=== PATIENT | male | born 1975 | race Two or more races ===

== ENCOUNTER 2020-07-17 04:18 | Inpatient (IN) | payer OTHER ==
[2020-07-13 10:10] VITALS: BMI 31.2
[~2020-07-17 04:18] MED LIST: BUPIVACAINE HCL/PF 0.5% (5 MG/ML) 30 ML VIAL IJ ONE; BUPIVACAINE LIPOSOME/PF (EXPAREL) 266 MG/20 ML VIAL NR ONE
[2020-07-17] MEDS ORDERED: GENTAMICIN SO4 80 MG/2 ML VIAL ONE (11:16)
[2020-07-17] MEDS ORDERED: LIDOCAINE 1%/EPI 1:100000 (50 ML MULTI DOSE VIAL) ONE (11:17)
[2020-07-17] MEDS ORDERED: THROMBIN (BOVINE) 5,000 UNIT VIAL TP ONE ×2 (11:17→13:08)
[2020-07-17] MEDS ORDERED: KETAMINE HCL 200 MG/20 ML VIAL ONE (11:34)
[2020-07-17] MEDS ORDERED: MIDAZOLAM HCL 2 MG/2 ML SINGLE DOSE VIAL ONE (11:34)
[2020-07-17] MEDS ORDERED: fentaNYL CITRATE 250 MCG/5 ML VIAL ONE (11:34)
[2020-07-17] MEDS ORDERED: ePHEDrine SULFATE 50 MG/1 ML AMPULE ONE (11:34)
[2020-07-17] MEDS ORDERED: ROCURONIUM BROMIDE 50 MG/5 ML SYRINGE ONE ×4 (11:35→15:40)
[2020-07-17] MEDS ORDERED: PROPOFOL 20 ML ONE ×5 (11:35)
[2020-07-17] MEDS ORDERED: LIDOCAINE HCL/PF 2% SDV 5ML VIAL ONE (11:36)
[2020-07-17] MEDS ORDERED: EPHEDRINE SULFATE/0.9% NACL/PF 50 MG/10 ML SYRINGE NR ONE (11:40)
[2020-07-17] MEDS ORDERED: VANCOMYCIN 1,000 MG VIAL (RESTRICTED TO ID ONLY) ONE (11:40)
[2020-07-17] MEDS ORDERED: ceFAZolin SODIUM 1 GM VIAL ONE ×2 (11:40→15:33)
[2020-07-17] MEDS ORDERED: VANCOMYCIN 1,000 MG VIAL (RESTRICTED TO ID ONLY) IVPB ONE (12:30)
[2020-07-17] MEDS ORDERED: ceFAZolin 2 GRAM PREMIX BAG IVPB ONE (12:30)
[2020-07-17] MEDS ORDERED: TRANEXAMIC ACID 1000 MG/10 ML VIAL ONE ×2 (12:35→14:07)
[2020-07-17] MEDS ORDERED: ONDANSETRON 4 MG/2 ML VIAL ONE (12:58)
[2020-07-17] MEDS ORDERED: DEXAMETHASONE SOD PHOSPHATE 4 MG/1 ML VIAL ONE (12:58)
[2020-07-17] MEDS ORDERED: HYDROGEN PEROXIDE 473 ML PO ONE (13:06)
[2020-07-17] MEDS ORDERED: BACITRACIN 50,000 UNITS VIAL TP ONE (13:07)
[2020-07-17] MEDS ORDERED: GENTAMICIN SO4 80 MG/2 ML VIAL IVPB ONE (13:07)
[2020-07-17] MEDS ORDERED: BUPIVACAINE LIPOSOME/PF (EXPAREL) 266 MG/20 ML VIAL ONE (13:20)
[2020-07-17] MEDS ORDERED: HYDROmorphone HCl 2 MG/ML VIAL ONE (14:13)
[2020-07-17] MEDS ORDERED: CALCIUM CHLORIDE 1 GM/10 ML *DISP.SYRIN ONE (14:27)
[2020-07-17] MEDS ORDERED: NEOSTIGMINE METHYLSULFATE 0.5 MG/1 ML - 10 ML MDV ONE (14:39)
[2020-07-17] MEDS ORDERED: BUPIVACAINE HCL/PF 0.5% (5 MG/ML) 30 ML VIAL IJ ONE (15:30)
[2020-07-17] MEDS ORDERED: BUPIVACAINE LIPOSOME/PF (EXPAREL) 266 MG/20 ML VIAL NR ONE (15:30)
[2020-07-17] MEDS ORDERED: GLYCOPYRROLATE 0.2 MG/1 ML VIAL ONE (15:45)
[2020-07-17] MEDS ORDERED: BENZOIN/ALOE VERA/STORAX/TOLU 58 ML BOTTLE ONE (16:19)
[2020-07-17] MEDS ORDERED: diazePAM CARPU-JECT 10 MG/2 ML DISP.SYRIN IVPUSH PRN (16:40)
[2020-07-17] MEDS ORDERED: oxyCODONE HCL 5 MG TABLET PO PRN (16:40)
[2020-07-17] MEDS: HYDROmorphone *PCA* 10MG/50ML DISP.SYRIN PCA SCH ×2 (17:30→22:41)
[2020-07-17] MEDS ORDERED: PCA PUMP NR ONE (19:43)
[2020-07-17] MEDS: LACTATED RINGERS SOLUTION 1,000 ML IV SCH (19:52)
[2020-07-17] MEDS: CEFAZOLIN 2 GM/D5W 2 GM/50 ML ML IVPB SCH ×2 (20:00→21:07)
[2020-07-18] MEDS: LACTATED RINGERS SOLUTION 1,000 ML IV SCH ×4 (02:16→21:35)
[2020-07-18] MEDS: CEFAZOLIN 2 GM/D5W 2 GM/50 ML ML IVPB SCH (02:17)
[2020-07-18 08:54] LABS: HEMATOCRIT 30.4 % (35.4-49); HEMOGLOBIN 10.5 GM/dL (11.7-16.9); MCH 30.7 pg (25.7-33.7); MCHC 34.7 g/dl (32.0-35.9); MEAN CELL VOLUME 88.6 fl (80-96); MEAN PLT VOLUME 9.9 fl (7.5-11.1); PLATELET COUNT 157 K/MM3 (134-434); RBC 3.43 M/mm3 (4.00-5.60); RDW 12.8 % (11.9-15.9); WHITE BLOOD COUNT 16.6 K/mm3 (4.0-10.0)
[2020-07-18] MEDS ORDERED: CEFAZOLIN 2 GM/D5W 2 GM/50 ML ML IVPB SCH (09:00)
[2020-07-18 09:14] LABS: BLOOD UREA NITROGEN 12.4 mg/dL (7-18); CALCIUM 8.1 mg/dL (8.5-10.1)
[2020-07-18 09:17] LABS: CREATININE 0.7 mg/dL (0.55-1.3)
[2020-07-18] MEDS: LORATADINE 10 MG TABLET PO SCH (09:22)
[2020-07-18] MEDS: ONDANSETRON 4 MG/2 ML VIAL IVPUSH PRN (09:48)
[2020-07-18] MEDS ORDERED: PCA PUMP NR ONE ×2 (11:42→16:54)
[2020-07-18] MEDS: ACETAMINOPHEN 1000 MG/100 ML VIAL (NON FORMULARY) IVPB PRN ×2 (13:08→21:35)
[2020-07-18] MEDS ORDERED: oxyCODONE HCL 5 MG TABLET PO PRN (16:29)
[2020-07-18] MEDS: oxyCODONE HCL 5 MG TABLET PO PRN ×2 (17:49→21:49)
[2020-07-18] MEDS: CYCLOBENZAPRINE HCL 10 MG TABLET (FP) PO PRN (18:06)
[2020-07-18] MEDS: HYDROmorphone HCl 2 MG/ML VIAL SQ PRN (19:14)
[2020-07-19] MEDS: HYDROmorphone HCl 2 MG/ML VIAL SQ PRN ×3 (01:51→18:55)
[2020-07-19] MEDS: LACTATED RINGERS SOLUTION 1,000 ML IV SCH ×3 (06:04→23:03)
[2020-07-19] MEDS: ACETAMINOPHEN 1000 MG/100 ML VIAL (NON FORMULARY) IVPB PRN (06:05)
[2020-07-19 08:13] LABS: BASO % 0.3 % (0-2.0); EOS % 0.1 % (0-4.5); HEMATOCRIT 28.1 % (35.4-49); HEMOGLOBIN 9.9 GM/dL (11.7-16.9); LYMPH % 19.5 % (8-40); MCH 31.2 pg (25.7-33.7); MCHC 35.3 g/dl (32.0-35.9); MEAN CELL VOLUME 88.4 fl (80-96); MEAN PLT VOLUME 9.8 fl (7.5-11.1); MONO % 12.1 % (3.8-10.2); PLATELET COUNT 142 K/MM3 (134-434); RBC 3.18 M/mm3 (4.00-5.60); RDW 12.6 % (11.9-15.9); WHITE BLOOD COUNT 14.3 K/mm3 (4.0-10.0)
[2020-07-19 08:24] LABS: CALCIUM 8.2 mg/dL (8.5-10.1)
[2020-07-19 08:25] LABS: BLOOD UREA NITROGEN 9.6 mg/dL (7-18)
[2020-07-19 08:28] LABS: CREATININE 0.8 mg/dL (0.55-1.3)
[2020-07-19] MEDS ORDERED: PT OWN MED DRAWER 7, Y5N ONE (09:20)
[2020-07-19] MEDS: LORATADINE 10 MG TABLET PO SCH (09:21)
[2020-07-19] MEDS: oxyCODONE HCL 5 MG TABLET PO PRN ×3 (09:22→21:19)
[2020-07-19] MEDS: CYCLOBENZAPRINE HCL 10 MG TABLET (FP) PO PRN ×2 (13:38→23:26)
[2020-07-19] MEDS ORDERED: ACETAMINOPHEN 1000 MG/100 ML VIAL (NON FORMULARY) IVPB ONE (23:17)
[2020-07-20] MEDS: HYDROmorphone HCl 2 MG/ML VIAL SQ PRN ×3 (03:24→20:02)
[2020-07-20] MEDS: oxyCODONE HCL 5 MG TABLET PO PRN ×2 (05:38→10:31)
[2020-07-20] MEDS: LACTATED RINGERS SOLUTION 1,000 ML IV SCH ×4 (05:41→22:39)
[2020-07-20] MEDS: LORATADINE 10 MG TABLET PO SCH (09:29)
[2020-07-20] MEDS: ONDANSETRON 4 MG/2 ML VIAL IVPUSH PRN (10:37)
[2020-07-20] MEDS: Methylnaltrexone Bromide 12 MG/0.6 ML KIT SQ SCH (14:30)
[2020-07-20] MEDS ORDERED: PCA PUMP NR ONE (18:30)
[2020-07-20] MEDS: CYCLOBENZAPRINE HCL 10 MG TABLET (FP) PO PRN (18:41)
[2020-07-20] MEDS: SENNOSIDES 8.6MG TABLET (FP) PO SCH (21:36)
[2020-07-20] MEDS: POLYETHYLENE GLYCOL 3350 119 GM BTL PO SCH (21:36)
[2020-07-21] MEDS: oxyCODONE HCL 5 MG TABLET PO PRN ×3 (00:01→11:47)
[2020-07-21] MEDS: HYDROmorphone HCl 2 MG/ML VIAL SQ PRN (04:31)
[2020-07-21] MEDS: CYCLOBENZAPRINE HCL 10 MG TABLET (FP) PO PRN (04:33)
[2020-07-21 08:09] LABS: BASO % 0.3 % (0-2.0); EOS % 1.5 % (0-4.5); HEMATOCRIT 28.6 % (35.4-49); HEMOGLOBIN 9.9 GM/dL (11.7-16.9); LYMPH % 25.1 % (8-40); MCH 30.9 pg (25.7-33.7); MCHC 34.6 g/dl (32.0-35.9); MEAN CELL VOLUME 89.2 fl (80-96); MEAN PLT VOLUME 9.9 fl (7.5-11.1); MONO % 10.2 % (3.8-10.2); NEUT % 62.9 % (42.8-82.8); PLATELET COUNT 171 K/MM3 (134-434); RBC 3.21 M/mm3 (4.00-5.60); RDW 12.4 % (11.9-15.9); WHITE BLOOD COUNT 9.9 K/mm3 (4.0-10.0)
[2020-07-21 08:30] LABS: ALBUMIN 2.5 g/dl (3.4-5.0); BLOOD UREA NITROGEN 6.5 mg/dL (7-18); CALCIUM 8.3 mg/dL (8.5-10.1)
[2020-07-21 08:34] LABS: CREATININE 0.5 mg/dL (0.55-1.3)
[2020-07-21 08:35] LABS: BILIRUBIN,TOTAL 0.9 mg/dL (0.2-1); TOT PROT 5.5 g/dl (6.4-8.2)
[2020-07-21] MEDS: POLYETHYLENE GLYCOL 3350 119 GM BTL PO SCH ×2 (09:19→21:10)
[2020-07-21] MEDS: SENNOSIDES 8.6MG TABLET (FP) PO SCH ×2 (09:19→21:12)
[2020-07-21] MEDS: LORATADINE 10 MG TABLET PO SCH (09:19)
[2020-07-21] MEDS ORDERED: ACETAMINOPHEN 1000 MG/100 ML VIAL (NON FORMULARY) IVPB PRN (12:22)
[2020-07-21] MEDS: Methylnaltrexone Bromide 12 MG/0.6 ML KIT SQ SCH (13:30)
[2020-07-21] MEDS: LACTATED RINGERS SOLUTION 1,000 ML IV SCH ×2 (18:57→22:32)
[2020-07-21] MEDS ORDERED: TRIMETHOBENZAMIDE HCL 200MG/2ML INJ IM PRN (19:20)
[2020-07-21] MEDS: ONDANSETRON 4 MG/2 ML VIAL IVPUSH PRN (22:32)
[2020-07-22] MEDS: LACTATED RINGERS SOLUTION 1,000 ML IV SCH (06:34)
[2020-07-22] MEDS ORDERED: PT OWN MED DRAWER 7, Y5N ONE ×2 (09:13→09:15)
[2020-07-22] MEDS: Methylnaltrexone Bromide 12 MG/0.6 ML KIT SQ SCH (09:17)
[2020-07-22] MEDS: LORATADINE 10 MG TABLET PO SCH (09:17)
[2020-07-22] MEDS: SENNOSIDES 8.6MG TABLET (FP) PO SCH ×2 (09:17→21:28)
[2020-07-22] MEDS: POLYETHYLENE GLYCOL 3350 119 GM BTL PO SCH ×2 (09:17→21:28)
[2020-07-22] MEDS ORDERED: TAMSULOSIN HCL 0.4 MG CAP PO SCH (09:30)
[2020-07-22] MEDS ORDERED: DOCUSATE SODIUM 100 MG CAPSULE (FP) PO PRN (09:31)
[2020-07-22] MEDS: TAMSULOSIN HCL 0.4 MG CAP PO SCH (11:25)
[2020-07-22] MEDS: ACETAMINOPHEN 325 MG TABLET (FP) PO PRN ×2 (12:25→21:27)
[2020-07-23 08:10] LABS: BASO % 0.4 % (0-2.0); HEMATOCRIT 28.3 % (35.4-49); LYMPH % 18.7 % (8-40); MCH 31.1 pg (25.7-33.7); MCHC 35.4 g/dl (32.0-35.9); MEAN CELL VOLUME 87.8 fl (80-96); MEAN PLT VOLUME 8.7 fl (7.5-11.1); MONO % 10.8 % (3.8-10.2); NEUT % 69.1 % (42.8-82.8); PLATELET COUNT 234 K/MM3 (134-434); RBC 3.22 M/mm3 (4.00-5.60); RDW 12.6 % (11.9-15.9); WHITE BLOOD COUNT 9.9 K/mm3 (4.0-10.0)
[2020-07-23 08:29] LABS: ALBUMIN 2.6 g/dl (3.4-5.0); CALCIUM 8.2 mg/dL (8.5-10.1)
[2020-07-23 08:30] LABS: BLOOD UREA NITROGEN 9.9 mg/dL (7-18)
[2020-07-23] MEDS ORDERED: TAMSULOSIN HCL 0.4 MG CAP PO SCH (08:30)
[2020-07-23 08:33] LABS: CREATININE 0.5 mg/dL (0.55-1.3)
[2020-07-23 08:35] LABS: BILIRUBIN,TOTAL 1.8 mg/dL (0.2-1); TOT PROT 5.9 g/dl (6.4-8.2)
[2020-07-23] MEDS: SENNOSIDES 8.6MG TABLET (FP) PO SCH (09:32)
[2020-07-23] MEDS: TAMSULOSIN HCL 0.4 MG CAP PO SCH (09:32)
[2020-07-23] MEDS: LORATADINE 10 MG TABLET PO SCH (09:33)
[2020-07-23] MEDS: POLYETHYLENE GLYCOL 3350 119 GM BTL PO SCH (09:33)
[2020-07-23] MEDS: Methylnaltrexone Bromide 12 MG/0.6 ML KIT SQ SCH (09:34)
[2020-07-23] MEDS: ACETAMINOPHEN 325 MG TABLET (FP) PO PRN (10:28)
[2020-07-23 11:27] VITALS: BP 138/87; PULSE 95; TEMP 98.4
== END 2020-07-23 19:04 | disposition home or self-care (01) | DRG 304 ==
LOC: J2C 04:18 → J8W 19:40
PROVIDERS: ADMIT Orthopaedic Surgery Adult Reconstructive Orthopaedic Surgery; ATTEND Internal Medicine
PROC: 01NB0ZZ Release Lumbar Nerve, Open Approach (ICD-10-PCS; 2020-07-17)
PROC: 0SG00AJ Fusion of Lumbar Vertebral Joint with Interbody Fusion Device, Posterior Approach, Anterior Column, Open Approach (ICD-10-PCS; 2020-07-17)
PROC: 0SG3071 Fusion of Lumbosacral Joint with Autologous Tissue Substitute, Posterior Approach, Posterior Column, Open Approach (ICD-10-PCS; 2020-07-17)
PROC: 0SG30AJ Fusion of Lumbosacral Joint with Interbody Fusion Device, Posterior Approach, Anterior Column, Open Approach (ICD-10-PCS; 2020-07-17)
PROC: B01BZZZ Fluoroscopy of Spinal Cord (ICD-10-PCS; 2020-07-17)
PROC: 0JX70ZB Transfer Back Subcutaneous Tissue and Fascia with Skin and Subcutaneous Tissue, Open Approach (ICD-10-PCS; 2020-07-17)
PROC: 07DR3ZZ Extraction of Iliac Bone Marrow, Percutaneous Approach (ICD-10-PCS; 2020-07-17)
PROC: 0QB00ZZ Excision of Lumbar Vertebra, Open Approach (ICD-10-PCS; principal; 2020-07-17 11:00)
DX: M47.897 Other spondylosis, lumbosacral region (principal); M48.07 Spinal stenosis, lumbosacral region; M51.17 Intervertebral disc disorders with radiculopathy, lumbosacral region; K59.03 Drug induced constipation; K56.7 Ileus, unspecified; R33.8 Other retention of urine; I10 Essential (primary) hypertension; E78.5 Hyperlipidemia, unspecified; E66.9 Obesity, unspecified; Z68.31 Body mass index [BMI] 31.0-31.9, adult
CPT/HCPCS: 36415; 72131-TC; 74018-TC-FY; 76000-TC-FY; 80048; 80053; 85025; 85027; 86850; 86900; 86901; 94010; 94760; 97116-GP; 97161-GP; J0131